=== PATIENT | male | born 1995 ===

== ENCOUNTER 2024-01-18 10:30 | Outpatient (AMB) | payer BC, SELFPAY ==
--- NOTE | 2024-01-18 12:16 | AM.OFFWIN_ITS ---
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 Patient stands at work and does plenty of walking and lifting as well. No acute injury recalled. Has not been trying any medications for this. PFSH Social History Patient Tobacco Use Status: Current everyday Tobacco user Review of Systems Const Denies chills, Denies fatigue, Denies fever(s), Denies headache(s) and Denies weakness ENT Denies dizziness and Denies headache(s) Card Denies dyspnea Resp Denies cough, Denies dyspnea, Denies wheezing and Denies other ( shortness of breath) Musc Details: Right knee pain-see HPI Denies numbness and Denies tingling Neuro Denies dizziness, Denies headache(s), Denies numbness, Denies tingling, Denies paresthesias and Denies weakness Psych Denies anxiety and Denies depression Endo Denies fatigue Aller/Immun Denies wheezing Physical Exam Vital Signs: Last Vital Signs Pulse 68 01/18/24 12:17 BP 112/70 01/18/24 12:17 Pulse Ox 96 01/18/24 12:17 Oxygen Delivery Method Room Air 01/18/24 12:17 BMI result Body Mass Index 22.0 Const General: no acute distress and well developed Nutritional Appearance: well nourished Orientation/consciousness: patient oriented x3 HEENT Head: Yes normocephalic and Yes atraumatic Eyes General: appearance normal, both eyes and all related structures Pupils: Equal, round and reactive pupils present EOM: EOMs intact bilaterally Resp Effort & Inspection: normal respiratory effort Neuro General: patient oriented x3 and gait normal Cranial nerves: Yes Equal, round and reactive pupils present Extrem Other: Left knee normal Right knee: Appears normal to observation. No joint space tenderness. Normal range of motion. Normal palpation of lateral collateral and medial collateral ligaments. No patellar grind or Speedy's sign. No anterior posterior drawer signs. Patient acknowledges that pain is in surrounding muscles and tendons of knee. Psych Affect: normal affect Assessment & Plan Assessment & Plan (1) Recurrent knee pain: Code(s): M25.569 - Pain in unspecified knee Plan: Pain of muscles and tendon surrounding knee joint. No joint effusion or joint line tenderness. No patellar tenderness or crepitus Normal range of motion. No special testing abnormalities such as drawer signs, patellar grind or Speedy's sign. Likely muscle and tendon strain Use ice and heat Will send script for meloxicam Refer for physical therapy Patient has a brace and can use while at work but otherwise would keep this off. Orders: Orders PT Evaluation and Treatment Today M25.569 - Pain in unspecified knee Medications: New meloxicam 15 mg PO DAILY 30 days 30 tabs 0RF Coding Level of Care Code Est Pt Level 3 (11636) Diagnoses Recurrent knee pain M25.569
[2024-01-18 12:17] VITALS: BP 112/70; PULSE 68; O2SAT 96; BMI 22.0
== END 2024-01-18 13:17 | disposition home or self-care (01) ==
PROVIDERS: Visit Provider Family Medicine
DX: M25.569 Pain in unspecified knee (principal)
CPT/HCPCS: 99213